=== PATIENT | female | born 1960 | race African-American/Black ===

== ENCOUNTER → 2018-04-22 | Outpatient (CLI) | payer BC ==
[~2018-04-22] MED LIST: IBUP-232 PO; LORA-400 PO; TRIBTAB PO
[2018-04-22 12:43] LABS: MEAN CELL VOLUME 78.2 FL (80.0-100.0); MEAN CORPUSCULAR HEMOGLOBIN 24.7 PG (27.0-34.0); MEAN CORPUSCULAR HGB CONC 31.6 % (32.0-36.0); MEAN PLATELET VOLUME 8.1 FL (7.0-11.0); PLATELET COUNT 266 TH/MM3 (150-450); RED BLOOD COUNT 5.25 MIL/MM3 (4.00-5.30); RED CELL DISTRIBUTION WIDTH 16.3 % (11.6-17.2); WHITE BLOOD COUNT 6.2 TH/MM3 (4.0-11.0)
[2018-04-22 13:08] LABS: AST (GOT) 10 U/L (15-37); BICARBONATE 30.4 MEQ/L (21.0-32.0); BLOOD UREA NITROGEN 19 MG/DL (7-18); CALCIUM 9.3 MG/DL (8.5-10.1); CHLORIDE 104 MEQ/L (98-107); CREATININE 1.55 MG/DL (0.50-1.00); GLOMERULAR FILTRATION RATE 42 ML/MIN (>89); GLUCOSE,FASTING 88 MG/DL (74-99); SODIUM (NA) 143 MEQ/L (136-145)
[2018-04-22 13:09] LABS: ALT (GPT) 23 U/L (10-53)
[2018-04-22 13:11] LABS: ALKALINE PHOSPHATASE 97 U/L (45-117); TOTAL BILIRUBIN ADULT 0.3 MG/DL (0.2-1.0)
--- NOTE | 2018-04-23 17:59 | EKG ---
Date Performed: 04/22/2018 Time Performed: 12:09:57 PTAGE: 57 years EKG: Sinus rhythm NONSPECIFIC T-WAVE ABNORMALITY ABNORMAL ECG NO PREVIOUS TRACING DOCTOR: Misty Weathers Interpretating Date/Time 04/23/2018 17:57:43
== END ==
LOC: CPRE 11:54
PROVIDERS: ATTEND Obstetrics & Gynecology
DX: Z01.812 Encounter for preprocedural laboratory examination (principal); Z01.810 Encounter for preprocedural cardiovascular examination; N94.12 Deep dyspareunia; R94.31 Abnormal electrocardiogram [ECG] [EKG]
CPT/HCPCS: 36415; 80053; 85027; 93005

== ENCOUNTER 2018-04-28 11:21 | Observation (INO) | payer BC ==
[~2018-04-28] VITALS: Ht 170.2 cm; Wt 112.3 kg
[2018-04-28] MEDS ORDERED: CHLORHEXIDINE GLUCONATE 2 % 1 PACK (2 CLOTHS) TOPICAL PRN (12:00)
[2018-04-28] MEDS ORDERED: SODIUM CHLORID 0.9% 500 ML IV PRN (12:00)
[2018-04-28] MEDS ORDERED: METOPROLOL TARTRATE 25 MG TAB PO PRN (12:00)
[2018-04-28] MEDS ORDERED: POVIDONE IODINE 5% (ANTISEPSIS KIT) 4 APPLICATIONS EACH NARE PRN (12:00)
[2018-04-28] MEDS ORDERED: LACTATED RINGER'S 1000 ML IV PRN (12:00)
[2018-04-28] MEDS ORDERED: ACETAMINOPHEN 1000 MG/100 ML 100 ML IV ONE (12:45)
[2018-04-28] MEDS ORDERED: DEXMEDETOMIDINE HCL 200 MCG/2 ML VIAL ONE (13:25)
[2018-04-28] MEDS ORDERED: KETAMINE HCL 50 MG/5 ML SYRINGE ONE ×3 (13:41→17:40)
[2018-04-28] MEDS ORDERED: APREPITANT 40 MG CAP ONE (13:52)
[2018-04-28] MEDS ORDERED: BUPIVACAINE/EPINEPHRINE 0.5% PF 10 ML VIAL ONE (14:10)
[2018-04-28] MEDS ORDERED: PROPOFOL 500 MG/50 ML INJ 50 ML ONE ×2 (15:37→17:40)
[2018-04-28] MEDS ORDERED: PROPOFOL 500 MG/50 ML INJ 100 ML ONE (16:34)
[2018-04-28] MEDS ORDERED: SUGAMMADEX SODIUM 200 MG/2 ML VIAL IV PUSH ONE (17:40)
[2018-04-28] MEDS ORDERED: NON-FORMULARY DRUG IV ONE (18:00)
[2018-04-28] MEDS ORDERED: diphenhydrAMINE HCL 25 MG CAP PO PRN (18:45)
[2018-04-28] MEDS ORDERED: oxyCODONE/ACETAMINOPHEN 5 MG/325 MG TAB PO PRN (18:45)
[2018-04-28] MEDS ORDERED: ZOLPIDEM TARTRATE 5 MG TAB PO PRN (18:45)
[2018-04-28] MEDS ORDERED: SODIUM CHLORIDE 0.9% FLUSH 10 ML FLUSH IV FLUSH PRN (18:45)
[2018-04-28] MEDS ORDERED: DO NOT ADM ANY ANTICOAGULANT DRUGS PRN (18:50)
[2018-04-28] MEDS ORDERED: MIDAZOLAM HCL 2 MG/2 ML VIAL ONE (18:58)
[2018-04-28] MEDS ORDERED: ONDANSETRON ODT 4 MG TAB PO PRN (19:00)
[2018-04-28] MEDS ORDERED: HYDROmorphone HCL PF 0.5 MG/0.5 ML SYRINGE IV PRN (19:00)
[2018-04-28] MEDS: LACTATED RINGER'S 1000 ML INJ 1,000 ML IV SCH (19:00)
[2018-04-28] MEDS: DOCUSATE SODIUM 100 MG CAP PO SCH (20:00)
[2018-04-28 20:28] VITALS: BP 140/75; PULSE 57; RESP 18; TEMP 97.6; O2SAT 98
[2018-04-28] MEDS ORDERED: SODIUM CHLORIDE 0.9% FLUSH 10 ML FLUSH IV FLUSH SCH (21:00)
[2018-04-28 23:50] VITALS: BP 131/78; PULSE 50; RESP 17; TEMP 97.9
[2018-04-28] MEDS: IBUPROFEN 600 MG TAB PO PRN (23:59)
[2018-04-29] MEDS: DOCUSATE SODIUM 100 MG CAP PO SCH ×2 (00:06→07:57)
[2018-04-29] MEDS: LACTATED RINGER'S 1000 ML INJ 1,000 ML IV SCH (04:00)
[2018-04-29 04:07] VITALS: BP 119/65; PULSE 54; RESP 17; TEMP 97.7
[2018-04-29 05:55] LABS: BASOPHIL % 0.2 % (0.0-2.0); HEMATOCRIT 38.3 % (35.0-46.0); HEMOGLOBIN 12.3 GM/DL (11.6-15.3); LYMPH % 7.4 % (9.0-44.0); LYMPHOCYTE # 0.8 TH/MM3 (1.0-4.8); MEAN CELL VOLUME 77.6 FL (80.0-100.0); MEAN CORPUSCULAR HEMOGLOBIN 24.9 PG (27.0-34.0); MEAN CORPUSCULAR HGB CONC 32.2 % (32.0-36.0); MEAN PLATELET VOLUME 8.1 FL (7.0-11.0); MONO % 3.1 % (0.0-8.0); MONOCYTE # 0.4 TH/MM3 (0-0.9); NEUT % 89.3 % (16.0-70.0); PLATELET COUNT 248 TH/MM3 (150-450); RED BLOOD COUNT 4.93 MIL/MM3 (4.00-5.30); WHITE BLOOD COUNT 11.2 TH/MM3 (4.0-11.0)
[2018-04-29 06:23] LABS: BICARBONATE 26.6 MEQ/L (21.0-32.0); CREATININE 0.96 MG/DL (0.50-1.00)
[2018-04-29] MEDS: IBUPROFEN 600 MG TAB PO PRN (07:56)
[2018-04-29] MEDS: oxyCODONE/ACETAMINOPHEN 5 MG/325 MG TAB PO PRN ×2 (07:57→12:10)
[2018-04-29 08:56] VITALS: BP 142/73; PULSE 55; RESP 18; TEMP 98.3; O2SAT 98
[2018-04-29] MEDS ORDERED: HYDROCHLOROTHIAZIDE PO SCH (09:00)
[2018-04-29] MEDS ORDERED: NON-FORMULARY DRUG (Olmesartan-Amlodipine-Hydrochlorothiazide (Tribenzor) 1 TAB) PO SCH (09:00)
[2018-04-29] MEDS ORDERED: OLMESARTAN PO SCH (09:00)
[2018-04-29] MEDS ORDERED: AMLODIPINE PO SCH (09:00)
--- NOTE | 2018-04-29 11:56 | HHI.DCPOC ---
Discharge Care Plan Diagnosis: (1) Status post oophorectomy Report Symptoms to Your Doctor -Temperature above 100.5 degrees -Redness, of incision or excessive or foul smelling drainage -Unusual pain or calf pain -Increased vaginal bleeding -Painful or difficulty urinating -Feelings of extreme sadness or anxiety after 2 weeks Goals to Promote Your Health * To prevent worsening of your condition and complications * To maintain your health at the optimal level Directions to Meet Your Goals Take your medications as prescribed Follow your dietary instruction Follow activity as directed Ensure plenty of rest for recovery Drink fluids for hydration Keep your appointments as scheduled Take your immunizations and boosters as scheduled If your symptoms worsen call your PCP, if no PCP go to Urgent Care Center or Emergency Room Smoking is Dangerous to Your Health. Avoid second hand smoke Call the 24-hour crisis hotline for domestic abuse at Dorothy Patel April 29, 2018 11:56
--- NOTE | 2018-04-29 14:11 | HHI.PR ---
Subjective Remarks Doing well, pain is well controlled, eating well. Objective Vital Signs Vital Signs Date Time Temp Pulse Resp B/P (MAP) Pulse Ox O2 Delivery O2 Flow Rate FiO2 04/29/18 08:56 98.3 55 18 142/73 (96) 98 04/29/18 04:07 97.7 54 17 119/65 (83) 04/28/18 23:50 97.9 50 17 131/78 (95) 04/28/18 20:28 97.6 57 18 140/75 (96) 98 04/28/18 20:00 97.5 54 13 121/64 (83) 97 Nasal Cannula 2 04/28/18 19:45 57 15 120/64 (82) 96 Nasal Cannula 2 04/28/18 19:30 53 12 110/60 (77) 96 Nasal Cannula 2 04/28/18 19:15 54 16 115/63 (80) 98 Nasal Cannula 3 04/28/18 19:00 53 18 107/59 (75) 97 Nasal Cannula 10 04/28/18 18:48 98.0 54 12 105/59 (74) 95 Nasal Cannula 8 I/O 04/28/18 04/28/18 04/28/18 04/29/18 04/29/18 04/29/18 07:00 15:00 23:00 07:00 15:00 23:00 Intake Total 3500 ml Output Total 1750 ml Balance 1750 ml Intake Oral 0 ml IV Total 1000 ml Other 2500 ml Output Urine Total 1600 ml Estimated Blood Loss 150 ml Result Diagram: 04/29/18 0521 04/29/18 0521 Objective Remarks Chest is clear, regular rate and rhythm. Abdomen is soft and non-distended. Incision is clean and dry. Ext no CCE. A/P Assessment and Plan Post Op Day 1 Doing well Home today and return to office in two weeks seen by Dr Karimi . Dorothy Patel April 29, 2018 14:10
--- NOTE | 2018-04-29 14:17 | MP ---
cc: Radha Karimi MD, Carol DATE OF OPERATION: PREOPERATIVE DIAGNOSES: 1. Severe dyspareunia. 2. Pelvic pain. POSTOPERATIVE DIAGNOSES: 1. Severe dyspareunia. 2. Pelvic pain. 3. Severe adhesions of the bowel to the anterior abdominal wall. 4. Severe pelvic adhesions. 5. Severe retroperitoneal fibrosis. PROCEDURE PERFORMED: Laparoscopic exam with extensive lysis of adhesions, bilateral salpingo-oophorectomy, attempted ureterolysis and cystoscopy. ANESTHESIA: General endotracheal intubation. SURGEON: Radha Karimi MD for the bilateral salpingo-oophorectomy, cystoscopy, lysis of adhesions and the attempted ureterolysis. Dr. Kameron Moss for lysis of adhesions of the bowel to the anterior abdominal wall. FINDINGS: The exam under anesthesia revealed no pelvic masses. The vagina was clean. There was no evidence of bleeding or lacerations. It was slightly dry. The cuff was very well healed. The laparoscopic exam revealed massive adhesions, especially on the left side of the omentum and bowel to the anterior abdominal wall. Severe adhesions around both ovaries. The right ovary was hanging right above the vaginal cuff, accounting for her severe dyspareunia. The left ovary was socked into the left pelvic sidewall, right over the ureter. It was encased in dense adhesions. The vaginal cuff was visualized as we put a sponge stick in the vagina and the vaginal cuff from the interior looks normal as well. There was no mass, but it was very close to that right ovary. Cystoscopy revealed bilateral patency of both ureters. Extensive lysis of adhesions causing the surgery to last around 3 hours. The need to call in a general surgeon, because the bowel was firmly adherent to the anterior abdominal wall. COMPLICATIONS: Increased time for the procedure around 3 hours, because of the extensive lysis of adhesions and the need to call in a general surgeon. COUNTS: Counts were correct. ESTIMATED BLOOD LOSS: 75 mL FLUIDS: Crystalloids. CONDITION: The patient tolerated the procedure well and went to the recovery room in good condition. INDICATIONS FOR PROCEDURE/PROCEDURE IN DETAIL: The patient was taken to the operating room and identified by name band and verbally. This is a patient who had a total abdominal hysterectomy 5 months ago, and since then she has had severe dyspareunia and pelvic pain. When she was in the office, and I just touched the cuff of the vagina, she jumped off the table and hurt very badly. At that time, I explained we need to do laparoscopic exam and probably had ovary or abscess up in that area, so she was brought to the operating room, identified by name band and verbally given a general anesthetic, intubated and prepped and draped for vaginal, laparoscopic surgery. I wanted to have a sponge stick in the vagina during the laparoscopic exam to visualize exactly where the cuff was. Timeout was taken and then examination under anesthesia was carried out with a very careful vaginal exam to look for lacerations, other causes of bleeding after sex. There were no lesions. The cuff was well healed. There were no lacerations and at this point, a sponge stick was placed into the vagina and attention was turned to the subumbilical area. A small incision was made and a 5 mm trocar was used to enter the abdomen and pneumoperitoneum was created with 3 liters of CO2. There was massive adhesions on the left side. I could not even get in to put a trocar in this area, so we went over inferolateral to the umbilicus on the right side and put another 5 mm trocar in there. There was massive adhesions of omentum to the anterior abdominal wall. There seemed to be a small hernia and the bowel seemed to go up into this. I began taking down these adhesions and called for Dr. Kameron Moss to come in to help with those adhesions as the bowel was very close and very thickly adhesed to the anterior abdominal wall. He came in and will dictate that portion of the surgery. She took down most of those adhesions of the abdomen, but the pelvic adhesions around the ovaries did still exist. At this point, I took over the surgery. The first order of business was to look at that right ovary. The right ovary was encased in adhesions as well and we began taking these down by sharp and blunt dissection using scissors and the Harmonic scalpel with good results. The infundibulopelvic ligament was skeletonized. This took quite a bit of time because of the massive amount of scar tissue. We lifted the ovary up, took the Harmonic scalpel across the infundibulopelvic ligament and removed that. We were quite far from the ureter on that side and did not need to address on that side. There were some bowel adhesions around this area too, which were easily taken down. The left ovary, however, was a different story. We saw the left ovary encased in scar tissue, mostly bowel around that area. We took this down very slowly by sharp and blunt dissection, this is a very difficult dissection. At this time, the ovary was plastered against the left pelvic side wall. This was a very difficult dissection. I started to try to do a ureterolysis and went retroperitoneal but the retroperitoneal fibrosis around this ovary was very thick and I could not safely do that. Instead, I continued to take the adhesions down around the ovary and off the pelvic sidewall, being very careful. I again tried to identify the ureter, but there was so much fibrosis in this area, that was not possible for me to do. I skeletonized the infundibulopelvic ligament as well as I could, went as medially as I could once this was fully skeletonized and took it with the Harmonic scalpel with good results and hemostasis was excellent. At this point, put an EndoCatch bag in and removed both ovaries. We are going to send them separately because of the extensive lysis of adhesions. If we had a problem, I would like to know what side the ovary was on. At this point, we irrigated the pelvis and abdomen with a large amount of fluids. A 95% of the adhesions were taken down. We cauterized any small bleeders with Harmonic scalpel and felt that she was fairly hemostatic. On the left side, the infundibulopelvic had some oozing and we put some Jess in this area and watched it for about 10 minutes and it was dry. At this point, we removed the scope. We had placed a 10 mm port inferolateral to the umbilicus on the left to remove the ovaries and to help in dissection. This was farther superior than the right one, was done under direct vision and helped us with the difficult dissection. Once the ovary was removed and everything was hemostatic, I was concerned about a left ureteral injury and asked them to give 10 mL of methylene blue. While this was being done, I used the instrument to tie the deep fascia. The fascia was repaired with 2 sutures of 0 Vicryl with excellent results. I could not feel any hernia in this area once this had been accomplished. The laparoscope was then removed under direct vision and the right inferior lateral incision was used to release the air. I think we got all the air out and the skin was repaired with a 4-0 Monocryl in a subcuticular fashion. The laparoscope was then used. I cut the Viera, removed the Viera under direct vision and using an Asepto syringe, I filled the bladder with about 100 mL of fluid. We saw effluent bilaterally from both ureteral orifices without any difficulty and then we removed the cystoscope, I was satisfied at this point and she tolerated the procedure well and was taken to the recovery room in satisfactory condition. This was a very long and very difficult case and took a long time to take all those adhesions down safely, but at the end, I felt that we had done a good job, removed everything we needed to remove and she should do very well. R. Ian Karimi MD RJV/TL , 01:28 PM , 02:16 PM
--- NOTE | 2018-04-29 14:45 | EKG ---
Date Performed: 04/28/2018 Time Performed: 19:43:35 PTAGE: 57 years EKG: SINUS BRADYCARDIA WITH FIRST DEGREE AV BLOCK LEFT VENTRICULAR HYPERTROPHY AND ST-T CHANGE A BNORMAL ECG Since the PREVIOUS TRACING , no significant change noted PREVIOUS TRACIN04/22/2018 12.09 DOCTOR: Navneet West Interpretating Date/Time 04/29/2018 14:43:27
== END 2018-04-29 13:17 | disposition home or self-care (01) ==
LOC: HSDC 11:21 → HPAC 18:39 → H1EA 20:15
PROVIDERS: ADMIT Obstetrics & Gynecology; ATTEND Obstetrics & Gynecology
DX: N94.10 Unspecified dyspareunia (principal); N73.6 Female pelvic peritoneal adhesions (postinfective); N13.5 Crossing vessel and stricture of ureter without hydronephrosis; I44.0 Atrioventricular block, first degree
CPT/HCPCS: 00840; 58661; 80048; 85025; 88305; 93005; G0378; J0131; J2250; J3010; J7120; J8501